=== PATIENT | female | born 1990 | race Two or more races ===

== ENCOUNTER 2022-07-22 22:14 | Emergency (ER) | payer MEDICAID ==
[~2022-07-22] VITALS: Ht 165.1 cm; Wt 57.3 kg
[2022-07-22 23:58] VITALS: BP 119/69
[2022-07-23 01:01] LABS: Urine Bacteria None Seen /hpf (None Seen); Urine Blood Normal /uL (Negative); Urine Specific Gravity 1.007 (1.001-1.035)
[2022-07-23 01:02] LABS: Urine WBC 5 /hpf (0 - 5)
[2022-07-23 01:17] LABS: Basophils # (auto) 0 10 ^3/uL (0-0.2); Basophils % (auto) 0.2 % (0.0-2.0); Eosinophils # (auto) 0 10 ^3/uL (0-0.8); Hematocrit 39.9 % (36.0-46.0); Hemoglobin 13.1 g/dL (12.2-16.2); Lymphocytes # (auto) 0.6 10 ^3/uL (0.4-5.4); Lymphocytes % (auto) 7.4 % (10.0-50.0); Mean Corpuscular Hemoglobin 29.3 pg (28.0-32.0); Mean Corpuscular Hgb Conc. 32.9 g/dL (32.0-36.0); Mean Corpuscular Volume 89.3 fL (80.0-100.0); Monocytes # (auto) 0.4 10 ^3/uL (0-1.3); Monocytes % (auto) 5.3 % (0.0-12.0); Neutrophils # (auto) 7.1 10 ^3/uL (1.6-8.6); Neutrophils % (auto) 87.1 % (37.0-80.0); Nucleated Red Blood Cells % 0.2 %; Red Blood Cells 4.47 10^6/uL (4.0-5.20); Red Cell Distribution Width 14.2 % (11.8-14.3); White Blood Cell 8.2 10^3/uL (4.4-10.8)
[2022-07-23 01:23] LABS: Albumin 3.9 g/dL (3.4-5.0); BUN/Creatinine Ratio 15.5; Calcium 8.1 mg/dL (8.5-10.1); Potassium 3.5 mmol/L (3.5-5.1)
[2022-07-23 01:26] LABS: Bilirubin, Total 0.5 mg/dL (0.2-1.0); Total Protein 7.5 g/dL (6.4-8.2)
[2022-07-23] MEDS ORDERED: SODIUM CHLORIDE 0.9% 1,000 ML IV ONE (02:15)
[2022-07-23] MEDS ORDERED: TAMIFLU PO (03:59)
== END 2022-07-23 05:20 | disposition home or self-care (01) ==
LOC: ER 22:20
DX: J10.1 Influenza due to other identified influenza virus with other respiratory manifestations (principal); R91.1 Solitary pulmonary nodule; Z20.822 Contact with and (suspected) exposure to COVID-19
CPT/HCPCS: 36415; 71045; 80053; 81001; 81025; 85025; 87426; 87804; 96360; 99284; J7030; 96361